=== PATIENT | female | born 1950 | race Caucasian/White ===

== ENCOUNTER → 2016-08-17 | Outpatient (CLI) | payer BC ==
[~2016-08-17] MED LIST: COZAAR100 MG PO; EYE DROPS; HYDROCHLOROTHIA25 MG PO; SINGULAIR4 MG PO; SYNTHROID25 MCG PO; TOPROL XL50 MG PO; ULTRAM ER100 MG PO; ZOCOR PO
--- NOTE | ~2016-08-17 | XA30 ---
[facility] A Service of [facility] & [facility] RADIOLOGY TEXT RESULTS PATIENT: IRENA SAVAGE [facility] 54 UNIT #: [id number] AGE: [address]: Skinny Carlos MD SEX: F ORDER DR: [id number] [facility] [address] [place], [place] [address] [id number] O MR#: [id number] Acc #: [id number] NAME: IRENA SAVAGE : 1950 SEX: F STUDY DATE/TIME: 08/17/2016 13:40 UNIT: [facility] ROOM: STUDY DESCRIPTION: XA Arthrocentesis Major Joint Attending Physician: Skinny Carlos M.D. Referring Physician: Skinny Carlos M.D. Ordering Physician: Skinny Carlos M.D. Primary Care Physician: Mariangel Aquino M.D. MEDICAL IMAGING REPORT This report is preliminary unless electronic signature is present EXAM Fluoroscopically guided left hip injection INDICATIONS Left hip pain PROCEDURE The risks, benefits and alternatives to the procedure were explained to the patient. Signed, informed consent was obtained. The patient was placed supine on angiographic table and was prepped and draped in the usual sterile fashion. Time-out was performed as per protocol. Skin and subcutaneous tissues were anesthetized with buffered lidocaine. A 22-gauge spinal needle was advanced into the joint space, contrast was injected, which confirmed location within the joint space. I then instilled a combination of lidocaine, bupivacaine and Depo-Medrol. Needle was then removed and manual pressure was applied until hemostasis was obtained. Total fluoroscopy time was 0.2 minutes and a single fluoroscopic image was obtained. IMPRESSION Technically successful fluoroscopically guided left hip injection as noted above. Fluoroscopy was used during the procedure and permanent images were saved. Dictated by... Arelis Daigle M.D. THIS IS AN ELECTRONICALLY VERIFIED REPORT Arelis Daigle M.D. at 08/19/2016 6:30 PM AFF/to TD: 08/19/2016 13:26 JOB #: [id number] [facility] A Service of [facility] RADIOLOGY TEXT RESULTS PATIENT: IRENA SAVAGE LOCATION: [facility] ACC #: [id number] : 54 UNIT #: [id number] AGE: [address]: Skinny Carlos MD SEX: F ORDER DR: MEDICAL IMAGING REPORT Page 1 of 1 COPY
== END | disposition home or self-care (01) ==
LOC: CIVR 13:25
PROC: 3E0U3BZ Introduction of Anesthetic Agent into Joints, Percutaneous Approach (ICD-10-PCS; principal; 2016-08-17)
PROC: 3E0 Administration, Physiological Systems and Anatomical Regions, Introduction (ICD-10-PCS; 2016-08-17)
DX: M25.552 Pain in left hip (principal); M19.90 Unspecified osteoarthritis, unspecified site
CPT/HCPCS: 77002; J1030; Q9967